=== PATIENT | male | born 1970 | race Caucasian/White ===

== ENCOUNTER 2016-12-14 16:51 | Emergency (ER) | payer OTHER ==
[2016-12-14 17:03] VITALS: BP 130/87; PULSE 68; RESP 16; TEMP 98.2
--- NOTE | 2016-12-14 17:19 | ED ---
General Adult HPI - General Chief complaint: Wound/Laceration Stated complaint: Finger Injury Time Seen by Provider: 12/14/16 17:08 Source: patient, RN notes reviewed Mode of arrival: ambulatory Limitations: no limitations - History of Present Illness Initial comments: This is a 46-year-old male presents with a crush injury to the fifth digit of the right hand. Patient states he was working with a tool smashed his pinky finger. Patient complains of pain to the tip of the fifth finger with some bleeding as well. Patient denies any numbness or weakness but does complain of some tingling. Patient is still able to move the fingers of the right hand. Patient denies any recent fever, chills, shortness breath, chest pain, abdominal pain, nausea/vomiting/diarrhea, back pain, hematuria, headache, or visual changes, or any other complaints. - Related Data Previous Rx's Medication Instructions Recorded Cephalexin [Keflex] 500 mg PO Q12HR 7 Days 12/14/16 HYDROcodone/APAP 5-325MG [[place] 1 tab PO Q6HR #12 tab 12/14/16 5-325] Allergies Allergy/AdvReac Type Severity Reaction Status Date / Time No Known Allergies Allergy Verified 12/14/16 17:03 Review of Systems ROS Statement: Those systems with pertinent positive or pertinent negative responses have been documented in the HPI. ROS Other: All systems not noted in ROS Statement are negative. Past Medical History Past Medical History: No Reported History History of Any Multi-Drug Resistant Organisms: None Reported Past Surgical History: Orthopedic Surgery Additional Past Surgical History / Comment(s): right arm, left ankle Past Psychological History: No Psychological Hx Reported Smoking Status: Never smoker Past Alcohol Use History: Occasional Past Drug Use History: None Reported General Exam - General Exam Comments Initial Comments: General: The patient is awake and alert, in no distress, and does not appear acutely ill. Neck: The neck is supple, there is no tenderness or JVD. Cardiovascular: There is a regular rate and rhythm. No murmur, rub or gallop is appreciated. Respiratory: Lungs are clear to auscultation, respirations are non-labored, breath sounds are equal. No wheezes, stridor, rales, or rhonchi. Musculoskeletal: There is tenderness to palpation over the fifth digit of the right hand distal to the DIP joint. There is blood draining from the periungual area of the fifth digit of the right hand. There is no disfigurement of the nail. There is ecchymosis to the pad of the fifth digit distal to the DIP joint. Full range of motion, strength 5/5 and Sensation intact. Pulses 2+ bilaterally. Capillary refill is normal at less than 2 seconds. Neurological: A&O x 3. CN II-XII intact, There are no obvious motor or sensory deficits. Coordination appears grossly intact. Speech is normal. Skin: Skin is warm and dry and no rashes or lesions are noted. Psychiatric: Normal mood and affect. Limitations: no limitations Course Vital Signs 12/14/16 16:58 Temperature 98.2 F Pulse Rate 68 Respiratory 16 Rate Blood Pressure 130/87 O2 Sat by Pulse 98 Oximetry Medical Decision Making - Medical Decision Making This is a 46-year-old male presents with a crush injury to the fifth digit of the right hand. On physical exam There is tenderness to palpation over the fifth digit of the right hand distal to the DIP joint. There is blood draining from the periungual area of the fifth digit of the right hand. There is no disfigurement of the nail. There is ecchymosis to the pad of the fifth digit distal to the DIP joint. Full range of motion, strength 5/5 and Sensation intact. Pulses 2+ bilaterally. Capillary refill is normal at less than 2 seconds. An x-ray of the right hand was done and reviewed showing: Positive for acute non -intra-articular fracture but involvement of the nailbed is noted. Report read by Dr. Gordon. Discussed the imaging results with the patient. Xylocaine was used for digital block of the fifth digit of the right hand. The wound was then cleansed and irrigated with normal saline. There is no disfigurement of the nail. There is no laceration. There is some drainage of blood just inferior to the nail bed. No foreign body noted in the wound. Patient's finger was dressed and splinted. Discussed to keep the splint on and do not use the right fifth digit. Discussed follow-up with orthopedics. Discussed patient will be put a course of antibiotics and given a short course of pain medicine until he can follow-up with orthopedics. Discussed that patient should follow up with PCP in one to 2 days or return to the for any worsening symptoms or for any further concerns. Patient was receptive to this plan and patient will be discharged home. Disposition Clinical Impression: Crushing injury of finger of right hand, Fracture of distal phalanx of finger Disposition: HOME SELF-CARE Condition: Good Instructions: Finger Fracture (ED) Additional Instructions: Please keep finger splint on and do not use the fifth digit of the right hand. Please finish the entire course of antibiotics and use pain medication as prescribed. Please be aware that these pain medications may make you drowsy said do not drink alcohol or drive while using them. Please follow-up with orthopedics in one to 2 days. Please follow-up with PCP in one to 2 days or return to the [facility] for any worsening symptoms or any further concerns. Prescriptions: Cephalexin [Keflex] 500 mg PO Q12HR 7 Days HYDROcodone/APAP 5-325MG [[place] 5-325] 1 tab PO Q6HR #12 tab Referrals: Bibiana Holt III, MD [Primary Care Provider] - 1-2 days Gianluca Ann MD [STAFF PHYSICIAN] - 1-2 days Time of Disposition: 18:13
--- NOTE | 2016-12-14 17:27 | XR ---
EXAMINATION TYPE: XR hand complete RT DATE OF EXAM: 12/14/2016 5:21 PM COMPARISON: NONE HISTORY: Pain after injury TECHNIQUE: 3 views FINDINGS: There is a nondisplaced fracture involving the distal phalanx of the fifth finger, just pro ximal to the tuft of the distal phalanx and at the level of the fingernail. There is associated promi nent soft tissue swelling. No intra-articular involvement. No other fractures. IMPRESSION: Positive for acute nonintra-articular fracture but involvement of the nailbed is noted.
== END 2016-12-14 18:16 | disposition home or self-care (01) ==
LOC: EC 16:51
DX: S62.636A Displaced fracture of distal phalanx of right little finger, initial encounter for closed fracture (principal); W27.8XXA Contact with other nonpowered hand tool, initial encounter
CPT/HCPCS: 64450; 99283

== ENCOUNTER 2017-04-10 13:15 | Emergency (ER) | payer OTHER ==
[2017-04-10 13:31] VITALS: BP 138/91; PULSE 87; RESP 16; TEMP 97.6
--- NOTE | 2017-04-10 13:40 | ED ---
Wound/Laceration HPI - General Chief Complaint: Wound/Laceration Stated Complaint: left thumb injury Time Seen by Provider: 04/10/17 13:32 Source: patient, RN notes reviewed Mode of arrival: ambulatory Limitations: no limitations - History of Present Illness Initial Comments: 46-year-old male presents emergency Department with chief complaint of left thumb laceration. Patient states he was cutting some hardwood states it kicked back causing a laceration to his thumb. Patient states his tetanus is up-to- date. Patient denies any fevers or chills. He states he has full range of motion of his digit. Patient states bleeding is controlled at this time. - Related Data Home Medications Medication Instructions Recorded Confirmed Ibuprofen [Motrin] 800 mg PO TID PRN 04/10/17 04/10/17 Previous Rx's Medication Instructions Recorded Cephalexin [Keflex] 500 mg PO Q6HR #40 cap 04/10/17 Allergies Allergy/AdvReac Type Severity Reaction Status Date / Time ampicillin Allergy Unknown Verified 04/10/17 13:31 Review of Systems ROS Statement: Those systems with pertinent positive or pertinent negative responses have been documented in the HPI. ROS Other: All systems not noted in ROS Statement are negative. Past Medical History Past Medical History: No Reported History History of Any Multi-Drug Resistant Organisms: None Reported Past Surgical History: Orthopedic Surgery Additional Past Surgical History / Comment(s): right arm, left ankle Past Psychological History: No Psychological Hx Reported Smoking Status: Never smoker Past Alcohol Use History: Occasional Past Drug Use History: None Reported General Exam Limitations: no limitations General appearance: alert, in no apparent distress Neck exam: Present: normal inspection. Absent: tenderness, meningismus, lymphadenopathy Respiratory exam: Present: normal lung sounds bilaterally. Absent: respiratory distress, wheezes, rales, rhonchi, stridor Cardiovascular Exam: Present: regular rate, normal rhythm, normal heart sounds. Absent: systolic murmur, diastolic murmur, rubs, gallop, clicks Extremities exam: Present: other (Left hand first digit there is a V-shaped laceration from the distal tip of the thumb that does involve nail bed approximately 3 cm total length) Neurological exam: Present: alert, oriented X3, CN II-XII intact Skin exam: Present: warm, dry, intact, normal color. Absent: rash Course Vital Signs 04/10/17 13:29 Temperature 97.6 F Pulse Rate 87 Respiratory 16 Rate Blood Pressure 138/91 O2 Sat by Pulse 97 Oximetry Procedures - Laceration Laceration #1 Consent Obtained: verbal consent Indication: laceration Site: hand (Left hand thumb) Size (cm): 3 Description: flap, irregular Depth: simple, single layer Anesthetic Used: lidocaine 1%, without epi Anesthesia Technique: local infiltration Amount (mls): 6 Pre-repair: wound explored, irrigated extensively, deep structures intact Type of Sutures: nylon Size of Sutures: 4-0 Number of Sutures: 10 Technique: simple, interrupted Patient Tolerated Procedure: well, no complications Medical Decision Making - Medical Decision Making 46-year-old male presented for thumb laceration. Patient has small tuft fracture. Patient was placed on Keflex at this time. Patient's laceration was closed. Patient tolerated well patient will be discharged return parameters were discussed. Disposition Clinical Impression: Thumb laceration, Open fracture of tuft of distal phalanx of finger Disposition: HOME SELF-CARE Condition: Stable Instructions: Care For Your Stitches (ED), Laceration (ED) Additional Instructions: Have sutures removed in 10 days. Wash the wound twice daily with soap and water. Return for any signs of infection.Please return to the Emergency Department if symptoms worsen or any other concerns. Prescriptions: Cephalexin [Keflex] 500 mg PO Q6HR #40 cap Referrals: Bibiana Holt III, MD [Primary Care Provider] - 1-2 days Time of Disposition: 14:15
--- NOTE | 2017-04-10 13:57 | XR ---
EXAMINATION TYPE: XR finger LT DATE OF EXAM: 04/10/2017 1:50 PM COMPARISON: NONE HISTORY: Pain TECHNIQUE: 3 views of the left thumb are submitted FINDINGS: There is a soft tissue edema and laceration with a fracture involving the tuft distal phala nx. Joint spaces preserved. No dislocation. IMPRESSION: 1. Soft tissue injury with tuft fracture distal phalanx first digit.
[2017-04-10] MEDS ORDERED: CEPHALEXIN 500MG STARTER PACK 4 CAP BTL PO STA (14:11)
== END 2017-04-10 14:24 | disposition home or self-care (01) ==
LOC: EC 13:15
DX: S62.522B Displaced fracture of distal phalanx of left thumb, initial encounter for open fracture (principal); S61.012A Laceration without foreign body of left thumb without damage to nail, initial encounter; Z88.1 Allergy status to other antibiotic agents; W20.8XXA Other cause of strike by thrown, projected or falling object, initial encounter; Y93.89 Activity, other specified
CPT/HCPCS: 12002; 99283

== ENCOUNTER 2019-07-05 21:52 | Emergency (ER) | payer OTHER ==
[2019-07-05 22:03] VITALS: RESP 18; TEMP 98
[2019-07-05] MEDS ORDERED: IBUPROFEN 400 MG TAB PO STA (22:22)
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
[2019-07-05 22:53] LABS: Appearance,Urine Clear (Clear); Bilirubin,Urine Negative (Negative); Blood,Urine Negative (Negative); Color,Urine Yellow; Glucose,Urine (UA) Negative (Negative); Ketones,Urine Negative (Negative); Leukocyte Esterase,Urine Negative (Negative); Nitrite,Urine Negative (Negative); PH, Urine 5.5 (5.0-8.0); Protein,Urine Negative (Negative); Specific Gravity,Urine 1.026 (1.001-1.035); Urobilinogen,Urine <2.0 mg/dL (<2.0)
[2019-07-05 23:33] VITALS: BP 143/88; PULSE 65
== END 2019-07-05 23:33 | disposition home or self-care (01) ==
LOC: EC 21:52
DX: I10 Essential (primary) hypertension (principal); S39.92XA Unspecified injury of lower back, initial encounter; Z88.0 Allergy status to penicillin; V49.49XA Driver injured in collision with other motor vehicles in traffic accident, initial encounter; Y92.410 Unspecified street and highway as the place of occurrence of the external cause
CPT/HCPCS: 81003; 99284

== ENCOUNTER 2019-07-08 19:02 | Emergency (ER) | payer OTHER ==
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
[2019-07-08 21:37] VITALS: BP 151/98; PULSE 66; RESP 18; TEMP 97.6
== END 2019-07-08 21:35 | disposition home or self-care (01) ==
LOC: EC 19:02
DX: M54.5 Low back pain (principal); M25.512 Pain in left shoulder; Z88.0 Allergy status to penicillin; V89.2XXA Person injured in unspecified motor-vehicle accident, traffic, initial encounter; Y92.410 Unspecified street and highway as the place of occurrence of the external cause
CPT/HCPCS: 72100; 99284

== ENCOUNTER → 2020-08-24 | Outpatient (CLI) | payer OTHER | END | disposition home or self-care (01) | LOC: LABWHC1 13:08 | PROVIDERS: ATTEND Nurse Practitioner Family | DX: R50.9 Fever, unspecified (principal) | CPT/HCPCS: U0003; C9803 ==